=== PATIENT | male | born 1970 | race Caucasian/White ===

== ENCOUNTER 2020-12-11 19:14 | Emergency (ER) | payer BC ==
[~2020-12-11] VITALS: Ht 160 cm; Wt 96.0 kg
[2020-12-11] MEDS ORDERED: ASPIRIN 81MG TABLET PO ONE (20:15)
[2020-12-11 20:21] LABS: BASOPHILS % 0.6 % (0.0-2.0); EOSINOPHILS % 0.9 % (0.0-5.0); HEMATOCRIT. 44.5 % (42.0-52.0); HEMOGLOBIN. 15.3 g/dL (14.0-18.0); LYMPHOCYTES % 26.4 % (20.0-50.0); MEAN CORPUSCULAR VOLUME 96.3 fL (80.0-94.0); MEAN PLATELET VOLUME 9.9 fl (7.4-10.4); MONOCYTES % 10.3 % (2.0-8.0); NEUTROPHILS % 61.8 % (40.0-76.0); PLATELET 177 x1000/uL (130-400); RED BLOOD CELL COUNT 4.62 mill/uL (4.7-6.1); RED CELL DISTRIBUTION WIDTH 12.9 % (11.6-14.6)
[2020-12-11 20:28] LABS: CHLORIDE 108 mEq/L (98-107)
[2020-12-11] MEDS ORDERED: MAGNESIUM/ALUMINUM HYDROXIDE/SIMETHICONE 30ML UDC PO STA (22:47)
[2020-12-11] MEDS ORDERED: VISCOUS LIDOCAINE 2% 15 ML UDC PO STA (22:47)
[2020-12-12] MEDS ORDERED: LISINOPRIL 40MG TABLET PO ONE (00:15)
[2020-12-12] MEDS ORDERED: AMLODIPINE 10MG TABLET PO ONE (00:15)
[2020-12-12] MEDS ORDERED: NITROGLYCERIN 0.4MG TABLET SL SL ONE (00:15)
[2020-12-12] MEDS ORDERED: SPIRONOLACTONE 25MG TABLET PO SCH (00:15)
[2020-12-12] MEDS ORDERED: ONDANSETRON HCL 4MG/2ML INJ IV PRN (01:30)
[2020-12-12] MEDS ORDERED: ACETAMINOPHEN 325MG TABLET PO PRN ×2 (01:30)
[2020-12-12] MEDS ORDERED: ZOLPIDEM TARTRATE 5MG TABLET PO PRN (01:30)
[2020-12-12] MEDS ORDERED: DIPHENHYDRAMINE 50MG/ML VIAL IV PRN (01:30)
[2020-12-12] MEDS ORDERED: MAGNESIUM/ALUMINUM HYDROXIDE/SIMETHICONE 30ML UDC PO PRN (01:30)
[2020-12-12] MEDS ORDERED: CLONIDINE 0.1MG TABLET PO PRN (01:45)
[2020-12-12] MEDS ORDERED: DEXTROSE 50% WATER 50ML SYRINGE IV PRN (03:15)
[2020-12-12] MEDS ORDERED: REGADENOSON 0.4 MG/5 ML IV SCH (03:15)
[2020-12-12] MEDS: SODIUM CHLORIDE 0.9% INJ 3ML FLUSH IVF SCH ×2 (06:05→13:39)
[2020-12-12] MEDS ORDERED: OMEPRAZOLE 20MG CAPSULE EXTENDED RELEASE PO SCH (07:50)
[2020-12-12] MEDS ORDERED: ASPIRIN 81MG EC TABLET PO SCH (09:00)
[2020-12-12] MEDS: BLOOD SUGAR DIAGNOSTIC STRIP TEST SCH ×2 (09:00→13:39)
[2020-12-12] MEDS ORDERED: AMLODIPINE 5MG TABLET PO SCH (09:00)
[2020-12-12] MEDS ORDERED: LISINOPRIL 20MG TABLET PO SCH (09:00)
[2020-12-12] MEDS ORDERED: REGADENOSON 0.4 MG/5 ML IV ONE (09:33)
[2020-12-12] MEDS: INSULIN LISPRO 100 UNITS/ML SUBCUT SCH ×2 (10:00→13:20)
[2020-12-12 13:28] LABS: T4 FREE 1.39 ng/dL (0.76-1.46)
[2020-12-12 15:00] VITALS: BP 113/66
[2020-12-12] MEDS ORDERED: ATORVASTATIN CALCIUM 20MG TABLET PO SCH ×2 (21:00)
== END 2020-12-12 19:43 | disposition home or self-care (01) ==
LOC: ER 19:14 → ENRESERV 12-12 08:14 → CANRESERV 12-12 08:14 → ER 12-12 19:43 → CANBEDREQ 12-12 19:52
DX: R07.2 Precordial pain (principal); R05 Cough; Z20.822 Contact with and (suspected) exposure to COVID-19; I10 Essential (primary) hypertension; E11.9 Type 2 diabetes mellitus without complications; E78.00 Pure hypercholesterolemia, unspecified
CPT/HCPCS: 36415; 71045; 78452; 80053; 80061; 82962; 83036; 83880; 84439; 84443; 84484; 85025; 85379; 87426; 93005; 93017; 93970; 99285; A9500; J2785; Z7610